=== PATIENT | female | born 1955 | race Caucasian/White ===

== ENCOUNTER 2017-10-02 15:27 | Outpatient (CLI) | payer OTHER | END 2017-10-02 15:28 | disposition home or self-care (01) | LOC: BICCT 15:27 | PROVIDERS: ATTEND Nurse Practitioner Family | DX: R25.1 Tremor, unspecified (principal) | CPT/HCPCS: 70450 ==

== ENCOUNTER 2018-04-29 15:58 | Outpatient (CLI) | payer OTHER | END 2018-04-29 15:59 | disposition home or self-care (01) | LOC: BICMAMMO 15:58 | PROVIDERS: ATTEND Obstetrics & Gynecology | DX: Z12.31 Encounter for screening mammogram for malignant neoplasm of breast (principal) | CPT/HCPCS: 77063; 77067 ==

== ENCOUNTER 2019-02-19 09:28 | Outpatient (CLI) | payer MEDICARE, OTHER ==
--- NOTE | 2019-02-19 10:16 | MMO ---
Right Breast MAMMO Unilat Diag DDI RT+RENE. CLINICAL HISTORY: Patient is 63 years old and is seen for additional evaluation requested from prior study. The patient has no family history of breast cancer. The patient has no personal history of cancer. VIEWS: The views performed were: right craniocaudal spot compression with tomosynthesis; right mediolateral oblique spot compression with tomosynthesis; and right mediolateral with tomosynthesis. FILMS COMPARED: The present examination has been compared to prior imaging studies performed at [facility] on 02/06/2019, and at [facility] on 05/17/2017, 04/29/2018 and 02/19/2019. MAMMOGRAM FINDINGS: The breast is heterogeneously dense, which could obscure a lesion on mammography. There is a stable focal asymmetry seen in the posterior upper-outer region of the right breast. There are no suspicious masses, suspicious calcifications, or new areas of architectural distortion. IMPRESSION: THERE IS NO MAMMOGRAPHIC EVIDENCE OF MALIGNANCY. A ROUTINE FOLLOW-UP MAMMOGRAM IN 1 YEAR IS RECOMMENDED. THE RESULTS OF THIS EXAM WERE SENT TO THE PATIENT. ACR BI-RADS Category 2 - Benign finding MAMMOGRAPHY NOTE: 1. A negative mammogram report should not delay a biopsy if a dominant of clinically suspicious mass is present. 2. Approximately 10% to 15% of breast cancers are not detected by mammography. 3. Adenosis and dense breasts may obscure an underlying neoplasm. Reported by: PAUL PEACE MD Electonically Signed: [id number]
--- NOTE | 2019-02-19 12:17 | ULT ---
SONOGRAM RIGHT BREAST: HISTORY: Abnormal screening mammogram. Focal asymmetry. FINDINGS: Sonographic evaluation of the superolateral aspect of the right breast in the region of mammographic concern was performed. Scattered fibroglandular densities. No solid or cystic masses. No suspiciou s shadowing. IMPRESSION: BIRADS category 2. Benign findings. Please see separate report for diagnostic mammography performed on the same date. POS: E[facility]
== END 2019-02-19 09:29 | disposition home or self-care (01) ==
LOC: BICMAMMO 09:28
PROVIDERS: ATTEND Obstetrics & Gynecology
DX: N63.10 Unspecified lump in the right breast, unspecified quadrant (principal)
CPT/HCPCS: 76642; 77065; G0279

== ENCOUNTER 2022-08-21 12:38 | Outpatient (CLI) | payer MEDICARE | END 2022-08-21 12:39 | disposition home or self-care (01) | LOC: BICMAMMO 12:38 | PROVIDERS: ATTEND Nurse Practitioner Family | DX: Z12.31 Encounter for screening mammogram for malignant neoplasm of breast (principal) | CPT/HCPCS: 77063; 77067 ==

== ENCOUNTER 2024-03-30 07:36 | Outpatient (CLI) | payer MEDICARE | END 2024-03-30 07:37 | disposition home or self-care (01) | LOC: BICULT 07:36 | PROVIDERS: ATTEND Nurse Practitioner Family | DX: K80.50 Calculus of bile duct without cholangitis or cholecystitis without obstruction (principal); R10.84 Generalized abdominal pain | CPT/HCPCS: 76700 ==

== ENCOUNTER 2024-05-22 09:38 | Outpatient (CLI) | payer MEDICARE ==
[2024-05-22] MEDS ORDERED: Iopamidol 370 76% 100 ML VIAL ONE (12:16)
== END 2024-05-22 09:39 | disposition home or self-care (01) ==
LOC: BICCT 09:38
PROVIDERS: ATTEND Internal Medicine Gastroenterology
DX: R10.11 Right upper quadrant pain (principal)
CPT/HCPCS: 36415; 74177; 82565

== ENCOUNTER 2025-05-11 12:49 | Outpatient (CLI) | payer MEDICARE | END 2025-05-11 12:50 | disposition home or self-care (01) | LOC: BICMAMMO 12:49 | PROVIDERS: ATTEND Nurse Practitioner Family | DX: Z12.31 Encounter for screening mammogram for malignant neoplasm of breast (principal) | CPT/HCPCS: 77063; 77067 ==